=== PATIENT | male | born 1955 | race Two or more races ===

== ENCOUNTER 2024-05-08 03:46 | Emergency (ER) | payer MEDICARE, SELFPAY ==
[2024-05-08] VITALS (8 sets, daily range): BP systolic 131–168; BP diastolic 78–92; PULSE 90–98; RESP 16–19; TEMP 36.7; O2SAT 93–99; BMI 33.5
--- NOTE | 2024-05-08 03:58 | EDNOTE_ITS ---
ED General RME/HPI General Chief complaint: Shortness of Breath/Dyspnea Stated complaint: TROUBLE BREATHING Time Seen by Provider: 05/08/24 03:49 Arrival date/time: 05/08/24 03:46 RME / HPI RME / HPI narrative: This section includes all my notes and documentations, including HPI, PE, and ED course. Alexi Rdz MD HPI: 68yo male with pmhx CAD, CHF, HTN, asthma, DM accompanied by his presents to the ED for a chief complaint of shortness of breath. Patient states his shortness of breath is intermittent, but worsens at night when he lays flat. Patient's notes the patient's stomach has been slightly distended and has had BLE swelling. Patient denies any cough, fever, chills or any other associated symptoms. states the patient is currently waiting to see a cardiac surgeon for his CAD. No other complaints reported. ROS: Respiratory: negative except as documented in HPI. Gastrointestinal: negative except as documented in HPI. Genitourinary: negative except as documented in HPI. Musculoskeletal: negative except as documented in HPI. Skin: negative except as documented in HPI. Neurological: negative except as documented in HPI. Physical Exam: General: Alert and oriented. In moderate respiratory distress. Eyes: Conjunctivae and lids clear. ENT: No nasal congestion. Neck: Supple. No JVD. Heart: RRR. Lungs: Moderate respiratory distress. Moderately decreased air movement with wheezing and Rales. Abdomen: Soft and nontender. Normal bowel sounds. No distension. No rebound or guarding. Legs: No clubbing, cyanosis, edema. Skin: Warm and dry. Neuro: Alert and oriented X 3. I ordered treatments (including Solu-Medrol and DuoNeb and Lasix and morphine and topical NTG) and diagnostic tests. At 6 AM, the care of the patient was transferred to Dr. Caba. Alexi Rdz MD Related Data Home Medications ?Medication ?Instructions ?Recorded ?Confirmed amlodipine 10 mg tablet 10 mg PO QDAY 12/14/20 05/08/24 benazepril 40 mg tablet 40 mg PO BID 12/14/20 05/08/24 metformin 1,000 mg tablet 1,000 mg PO BID 12/14/20 05/08/24 prazosin 1 mg capsule 1 mg PO BID 12/14/20 05/08/24 sitagliptin phosphate 100 mg 100 mg PO QDAY 12/14/20 05/08/24 tablet (Januvia) clotrimazole-betamethasone 1 1 applic topical BID excema 01/29/21 05/08/24 %-0.05 % topical cream albuterol sulfate 90 mcg/actuation 2 puff inhalation Q6H PRN ASTHMA 01/29/24 05/08/24 aerosol inhaler glimepiride 4 mg tablet 4 mg PO BID 01/29/24 05/08/24 insulin aspart U-100 100 unit/mL 12 unit subcut TID 01/29/24 05/08/24 (3 mL) subcutaneous pen (Novolog FlexPen U-100 Insulin aspart) insulin glargine U-300 conc 300 100 unit subcut QDAY 01/29/24 05/08/24 unit/mL (1.5 mL) subcutaneous pen (Toujeo SoloStar U-300 Insulin) simvastatin 20 mg tablet 20 mg PO QPM 01/29/24 05/08/24 clotrimazole-betamethasone 1 1 applic topical 2XD excema 05/08/24 05/08/24 %-0.05 % topical cream hydrocortisone 2.5 % topical 1 applic topical 2XD excema 05/08/24 05/08/24 ointment Allergies Allergy/AdvReac Type Severity Reaction Status Date / Time No Known Allergies Allergy Verified 05/08/24 03:49 Review of Systems Review of Systems Systems Reviewed: All systems reviewed, normal except as documented Past Medical History Past Medical History CARDIAC: Positive Congestive Heart Failure and Hypertension; Negative Cardiac Disorders RESPIRATORY: Positive Asthma; Negative Chronic Obstructive Pulmonary Disease (COPD) GENITOURINARY: Negative Renal Disease MUSCULOSKELETAL: Negative Musculoskeletal Disorders ENDOCRINE: Positive Diabetes Mellitus Type 2; Negative Diabetes Mellitus Type 1 HEMATOLOGIC: Negative Blood Disorders Surgical History SURGICAL: Positive Vascular Surgery Social History SMOKING STATUS: Never smoker ED Exam Narrative Physical exam: As noted in HPI. Course Quality Measures none Orders Category Date Time Status Bedside COVID-19 Antigen Test NOW Care 05/08/24 04:00 Active Bedside Influenza A&B Antigen Test NOW Care 05/08/24 04:[address] Screening NOW Care 05/08/24 04:00 Active EKG (ED ONLY) *Do not use* NOW Care 05/08/24 04:00 Completed Saline [Insert IV] NOW Care 05/08/24 03:[address] abdomen pelvis w con Stat Exams 05/08/24 04:[address] angio chest Stat Exams 05/08/24 04:00 Ordered EKG (ED Only) Stat Exams 05/08/24 04:00 Draft BNP [B-Type Natriuretic Peptide] Stat Lab 05/08/24 04:10 Received CBC Stat Lab 05/08/24 04:10 Completed CMP [Comprehensive Metabolic Panel] Stat Lab 05/08/24 04:10 Received D-Dimer Stat Lab 05/08/24 04:10 Completed Magnesium Stat Lab 05/08/24 04:10 Received Troponin I Stat Lab 05/08/24 04:10 Received UA [Urinalysis] Stat Lab 05/08/24 04:48 Completed Albuterol/Ipratr Rt Arleen [Duoneb Rt Arleen] Med 05/08/24 04:01 Discontinued 3 ml INH X1 ONE Furosemide Inj [Lasix Inj] Med 05/08/24 03:58 Discontinued 40 mg IVP X1 ONE MethylPREDNISolone.* [SoluMEDROL Inj] Med 05/08/24 04:01 Discontinued 125 mg IVP X1 ONE Morphine Inj Med 05/08/24 03:58 Discontinued 2 mg IVP X1 ONE Nitroglycerin Oint 2% [Nitro-paste Oint 2%] Med 05/08/24 03:58 Discontinued 2 inch TOP X1 ONE Vital Signs Vital signs: Vital Signs Temperature 98.0 F 05/08/24 03:57 Pulse Rate 93 05/08/24 03:57 Respiratory Rate 18 05/08/24 03:57 Blood Pressure 168/87 H 05/08/24 03:57 Pulse Oximetry (%) 95 05/08/24 03:57 Oxygen Delivery Method Room Air 05/08/24 03:57 Pulse ox is 95% on room air, which is normal according to my interpretation. [facility] Patient data External records reviewed:: [facility] previous records (Per chart review, patient has no previous ED visits to this facility.) Clinical information provided by:: patient Social determinants that could affect healthcare access:: none Patient has the following chronic illnesses:: CAD, CHF, HTN, DM How is presenting disease/condition affected by chronic disease/condition?: e xacerbated by Evaluation data The following diagnostics were reviewed and interpreted by me:: lab results, radiology exam(s) and EKG tracing(s) (My interpretation of the EKG is: Sinus rhythm (94 bpm) with nonspecific ST-T changes. Alexi Rdz MD) Lab and/or radiology exams considered but not ordered:: none Interpretation Summary: See HPI. Medications Medications considered but not ordered:: none Medication administrations:: Medication Administration History Discontinued Medications Albuterol/Ipratropium (Albuterol/Ipratropium (Duoneb) Rt Arleen 3 Ml Nebu) 3 ml INH X1 ONE Stop: 05/08/24 04:02 Last Admin: 05/08/24 04:18 Dose: 3 ml Documented By: DU Furosemide (Furosemide Inj 10 Mg/Ml 4ml Vial) 40 mg IVP X1 ONE Stop: 05/08/24 03:59 Last Admin: 05/08/24 04:10 Dose: 40 mg Documented By: TC Methylprednisolone Sodium Succinate (Methylprednisolone Sod Succ 62.5 Mg/Ml 2ml Vial) 125 mg IVP X1 ONE Stop: 05/08/24 04:02 Last Admin: 05/08/24 04:10 Dose: 125 mg Documented By: TC Morphine Sulfate (Morphine Sulf Inj 10 Mg/Ml Vial) 2 mg IVP X1 ONE Stop: 05/08/24 03:59 Last Admin: 05/08/24 04:12 Dose: 2 mg Documented By: TC Nitroglycerin (Nitroglycerin Oint 2% 1 Inch Packet) 2 inch TOP X1 ONE Stop: 05/08/24 03:59 Last Admin: 05/08/24 04:11 Dose: 2 inch Documented By: TC see above, if any Consultations Consultation(s) initiated? (list below): No Diagnosis Differential Diagnosis ED Complaint MDM: CHF exacerbation, asthma exacerbation, pneumonia, PE, NSTEMI Most likely diagnosis given after review of the tests above:: final dx pending at the time of sign out Admission Indicated Admission indicated?: not indicated Explain why admission is indicated or not indicated:: Patient is still pending work-up at the time of sign out. Admission Request Was there a request for admission?: No Disposition Plan Disposition Plan: other (specify) (Signed out to Dr. Caba at 0600 pending CTs, labs, and final disposition.) Medical Decision Making Differential Diagnosis Differential Diagnosis: CHF exacerbation, asthma exacerbation, pneumonia, PE, NSTEMI Lab Data 05/08/24 04:10 05/08/24 04:10 Labs: Lab Results 05/08/24 05/08/24 Range/Units 04:10 04:48 WBC 12.5 H (3.8-10.6) Thou/mm3 RBC 4.38 L (4.50-5.90) Miln/mm3 Hgb 13.4 L (13.5-16.0) g/dL Hct 37.9 L (41.0-53.0) % MCV 87 (80-100) fL MCH 30.6 (25.0-35.0) pg MCHC 35.4 (31.0-37.0) g/dl RDW Std Deviation 39.8 (35.1-43.9) fL Plt Count 221 (140-440) Thou/mm3 Neut % (Auto) 70 (37-80) % Lymph % (Auto) 16 (10-50) % [place] % (Auto) 10 (0-12) % Eos % (Auto) 3 (0-10) % Baso % (Auto) 1 (0-2.5) % Neut # (Auto) 8.7 H (1.8-7.7) Thou/mm3 Lymph # (Auto) 2.0 (1.0-4.8) Thou/mm3 [place] # (Auto) 1.3 H (0.0-0.8) Thou/mm3 Eos # (Auto) 0.3 (0.0-0.5) Thou/mm3 Baso # (Auto) 0.1 (0.0-0.2) Thou/mm3 Immature Gran # (Auto) 0.03 H (0.00-0.00) Thou/mm3 Absolute Nucleated RBC 0.00 (0.00-0.00) Thou/mm3 Immature Gran % 0 (0-0) % Nucleated RBC % 0 (0) /100 WBC D-Dimer 495 (<600) ng/mL Ur Collection Type Clean Catch Urine Color Colorless A (Lt Yel-Yel) Urine Clarity Clear (Clear/Hazy) Urine pH 6.0 (5.0-7.0) Ur Specific [place] 1.009 (1.001-1.035) Urine Protein 1+ A (Neg - Trace) Urine Glucose (UA) Negative (Negative) Urine Ketones Negative (Negative) Urine Blood Negative (Negative) Urine Nitrite Negative (Negative) Urine Bilirubin Negative (Negative) Urine Urobilinogen (Auto) Negative (0.0-1.0) mg/dL Ur Leukocyte Esterase Negative (Negative) Urine RBC 1 (0-3) /hpf Urine WBC 0 (0-5) /hpf Ur Squamous Epith Cells 0 (0-5) /hpf Urine Bacteria None (None) Discharge Plan Prescriptions/Referrals Prescriptions/Med Rec: No Action amlodipine 10 mg tablet 10 mg PO QDAY Januvia 100 mg tablet 100 mg PO QDAY benazepril 40 mg tablet 40 mg PO BID metformin 1,000 mg tablet 1,000 mg PO BID Hold Instructions: Resume on 01/31/24. resume on Tuesday 01/30 prazosin 1 mg capsule 1 mg PO BID clotrimazole-betamethasone 1-0.05 % cream 1 applic topical BID simvastatin 20 mg Tablet 20 mg PO QPM insulin aspart U-100 [Novolog FlexPen U-100 Insulin] 100 unit/mL (3 mL) Insulin Pen 12 unit SUBCUT TID insulin glargine U-300 conc [Toujeo SoloStar U-300 Insulin] 300 unit/mL (1.5 mL) Insulin Pen 100 unit SUBCUT QDAY glimepiride 4 mg Tablet 4 mg PO BID albuterol sulfate 90 mcg/actuation Hfa Aerosol Inhaler 2 puff INHALATION Q6H PRN (Reason: ASTHMA) clotrimazole-betamethasone 1-0.05 % cream 1 applic topical 2XD hydrocortisone 2.5 % ointment 1 applic TOPICAL 2XD Problem List Clinical Impression: Shortness of breath Patient/Caregiver Discharge Instructions Print Language: [place]
--- NOTE | 2024-05-08 04:00 | XR_ITS ---
Examination: CT abdomen with intravenous contrast CT pelvis with intravenous contrast 2-D coronal reconstructions 2-D sagittal reconstructions Date and time of exam:May 08, 2024 0804 hrs. Indications: Generalized abdominal discomfort beginning last night with shortness of breath. CTDI: vol (mGy) 13.8 DLP: (mGycm) 796 Technique: Multiple axial sections of the abdomen and pelvis have been obtained. 64 slice high-resolution scanner used. 3 mm axial sections have been obtained, post intravenous injection 100 cc Isovue-370 2-D sagittal, coronal reconstructions obtained. Low dose protocols were performed. One or more of the following dose reduction techniques were used; automated exposure control, adjustment of the mA and/or KV according to patient size, use of iterative reconstruction technique. Findings: No liver lesions Negative for gallstones No splenic pancreatic mass 13 mm left adrenal adenoma Moderate bilateral renal parenchymal scar formation with perinephric stranding, no hydronephrosis or renal calculi 34 mm right renal cyst Aorta normal size Normal appendix No bowel obstruction or diverticulitis No bladder mass Transverse prostate dimension 3.9 cm Moderate osteopenia Impression: Moderate bilateral renal parenchymal scar formation with bilateral perinephric stranding, consider urinary tract infection
--- NOTE | 2024-05-08 04:00 | XR_ITS ---
Examination: CTA chest with intravenous contrast 2-D reconstructions 3-D reconstructions, vascular Date and time of exam: May 08, 2024 at 0804 hrs. Indications: Shortness breath chest pain beginning last night CTDI: vol (mGy) 25.2 DLP: (mGycm) 501 Technique: Multiple axial sections of the thorax have been obtained. 3 mm slice thickness, from below the hemidiaphragms to above the apices of the lungs. Mediastinal and lung density settings have been obtained. 2-D sagittal and coronal reconstructions. 3-D angiographic renderings, 3-D volume renderings, 3D post processing, vascular maximum intensity projections obtained. Contrast administered is 100 cc Isovue-370. Low dose protocols were performed. One or more of the following dose reduction techniques were used; automated exposure control, adjustment of the mA and/or KV according to patient size, use of iterative reconstruction technique. Findings: No thoracic aortic aneurysm dilatation or dissection Pulmonary artery segments are not enlarged No pulmonary artery emboli Mild enlargement cardiac contour Prominent vascular congestion with septal edema, moderate right mild left pleural fluid Mild pneumonia at the right base Moderate thoracic spondylosis Impression: Negative for pulmonary artery emboli Mild to moderate CHF Mild pneumonia right base
--- NOTE | 2024-05-08 04:00 | EKG_ITS ---
[facility] Test Date: 2024-05-08 Pat Name: JENELLE ALVARES Department: Room: - Gender: Male Speech Lang Path: : 1955 Requested By: Alexi Momin Order Number: [id number] Reading MD: lAexi Momin Measurements Intervals [place] Rate: 94 P: 28 DC: 202 QRS: 53 QRSD: 103 T: 62 QT: 355 QTc: 446 Interpretive Statements SINUS RHYTHM No previous ECG available for comparison /store/S0/[id number]/ecg/[id number].pdf
[2024-05-08] MEDS: FUROSEMIDE INJ 10 MG/ML 4ML VIAL 40 MG IVP (04:10)
[2024-05-08] MEDS: MethylPREDNISolone SOD SUCC 62.5 MG/ML 2ML VIAL 125 MG IVP (04:10)
[2024-05-08] MEDS: NITROGLYCERIN OINT 2% 1 INCH PACKET 2 INCH TOP (04:11)
[2024-05-08] MEDS: MORPHINE SULF INJ 10 MG/ML VIAL 2 MG IVP (04:12)
[2024-05-08] MEDS: ALBUTEROL/IPRATROPIUM (Duoneb) RT SOL 3 ML NEBU INH (04:18)
[2024-05-08 04:38] LABS: Basophils # (Auto) 0.1 Thou/mm3 (0.0-0.2); Basophils % (Auto) 1 % (0-2.5); Eosinophils # (Auto) 0.3 Thou/mm3 (0.0-0.5); Eosinophils % (Auto) 3 % (0-10); Hematocrit 37.9 % (41.0-53.0); Hemoglobin 13.4 g/dL (13.5-16.0); Immature Granulocytes % (Auto) 0 % (0-0); Immature Granulocytes Auto 0.03 Thou/mm3 (0.00-0.00); Lymphocytes % (Auto) 16 % (10-50); Mean Corpuscular HGB Conc 35.4 g/dl (31.0-37.0); Mean Corpuscular Hemoglobin 30.6 pg (25.0-35.0); Mean Corpuscular Volume 87 fL (80-100); Monocytes # (Auto) 1.3 Thou/mm3 (0.0-0.8); Monocytes % (Auto) 10 % (0-12); Neutrophils # (Auto) 8.7 Thou/mm3 (1.8-7.7); Neutrophils % (Auto) 70 % (37-80); Nucleated Red Blood Cell % 0 /100 WBC (0); Platelet Count 221 Thou/mm3 (140-440); RDW Standard Deviation 39.8 fL (35.1-43.9); Red Blood Count 4.38 Miln/mm3 (4.50-5.90); White Blood Count 12.5 Thou/mm3 (3.8-10.6)
[2024-05-08 05:03] LABS: D-Dimer 495 ng/mL (<600)
[2024-05-08 05:07] LABS: Collection Type, Urine Clean Catch; Squamous Epithelial Cell,Urine 0 /hpf (0-5); WBC,Urine 0 /hpf (0-5)
[2024-05-08 05:20] LABS: Bilirubin,Urine Negative (Negative); Blood,Urine Negative (Negative); Clarity,Urine Clear (Clear/Hazy); Color,Urine Colorless (Lt Yel-Yel); Glucose, Urine Negative (Negative); Ketones,Urine Negative (Negative); Leukocyte Esterase,Urine Negative (Negative); Nitrite,Urine Negative (Negative); Protein,Urine 1+ (Neg - Trace); RBC,Urine 1 /hpf (0-3); Specific Gravity,Urine 1.009 (1.001-1.035); Urobilinogen,Urine Negative mg/dL (0.0-1.0)
[2024-05-08 05:53] LABS: B-Type Natriuretic Peptide 517 pg/mL (0-100)
[2024-05-08 05:54] LABS: Alanine Aminotransferase 24 U/L (10-49); Albumin, Serum 4.5 gm/dL (3.4-4.8); Albumin/Globulin Ratio 1.7 (1.2-2.2); Alkaline Phosphatase 85 U/L (46-116); Anion Gap 8 (7-16); Aspartate Amino Transferase 26 U/L (0-34); BUN/Creatinine Ratio 12 Ratio (12-20); Blood Urea Nitrogen 14 mg/dL (9-23); Calcium 9.4 mg/dL (8.3-10.6); Calcium (Corrected) 9.4 mg/dL (8.5-10.1); Carbon Dioxide 21.7 mMol/L (20.0-31.0); Chloride 107 mMol/L (98-107); Creatinine (Component) 1.2 mg/dL (0.6-1.3); Globulin 2.7 gm/dL (2.3-3.5); Glucose 185 mg/dL (74-106); Magnesium 2.2 mg/dL (1.6-2.6); Osmolality,Calculated 279 (275-295); Potassium 3.9 mMol/L (3.4-5.1); Sodium 137 mMol/L (136-145); Total Protein 7.2 gm/dL (5.7-8.2); eGFR > 60 See Note
[2024-05-08 06:08] LABS: Bilirubin,Total 0.9 mg/dL (0.3-1.2)
--- NOTE | 2024-05-08 06:17 | PD.EDADDENDU ---
Emergency Room Addendum Addendum Narrative: Patient's CT angiogram is unremarkable. Patient has minimally elevated troponins, which is expected with his extensive coronary artery disease. Patient does not have any emergency medical conditions at this time but strict return precautions were discussed
--- NOTE | 2024-05-08 07:13 | PC.NURSE ---
Pt. here from home to bed 1, pt. laying in bed resting, very mild SOB, pt. states he had to come in because he could not even sleep or lay down at home. Pt. states to sleep he had to sit in his recliner. Pt.'s spouse is bedside and a retired RN, she states she will call pt.'s primary M.D. on Friday. Spouse states pt. is only on 20 mg of Lasix daily. Pt. states he feels much better now.
--- NOTE | 2024-05-08 08:16 | PC.NURSE ---
Pt. in CT.
--- NOTE | 2024-05-08 09:23 | PD.EDADDENDU ---
Emergency Room Addendum Addendum Narrative: Patient was presented to Dr. White, who agrees with discharge planning and will see the patient in his office in 2 days
== END 2024-05-08 09:40 | disposition home or self-care (01) ==
PROVIDERS: Emergency Medicine; Emergency Provider Emergency Medicine; PCP Family Medicine
DX: R06.02 Shortness of breath (principal); I25.10 Atherosclerotic heart disease of native coronary artery without angina pectoris; R79.89 Other specified abnormal findings of blood chemistry; I11.0 Hypertensive heart disease with heart failure; I50.9 Heart failure, unspecified
CPT/HCPCS: 36415; 71275; 74177; 80053; 81001; 83735; 83880; 84484; 85025; 85379; 87400; 87811; 93005; 94640; 96374; 96375; 99285; A4649; A9270; J1940; J2270; J2919; Q9967

== ENCOUNTER → 2024-05-17 | Outpatient (CLI) | payer MEDICARE, SELFPAY ==
[2024-05-17 16:56] LABS: Glucose Estimated Average 192 mg/dL (80-131); Hemoglobin A1C 8.3 % Hgb (4.8-6.0)
== END | disposition home or self-care (01) ==
PROVIDERS: PCP Family Medicine; Referring Provider Family Medicine; Visit Provider Family Medicine
DX: E11.65 Type 2 diabetes mellitus with hyperglycemia (principal)
CPT/HCPCS: 36415; 83036

== ENCOUNTER 2024-05-18 07:49 | Emergency (ER) | payer MEDICARE, SELFPAY ==
[2024-05-18 07:50] VITALS: BMI 33.5
--- NOTE | 2024-05-18 07:50 | EKG_ITS ---
[facility] Test Date: 2024-05-18 Pat Name: JENELLE ALVARES Department: Room: - Gender: Male Lead Generation Representative: : 1955 Requested By: Landon Ivory (COMPUTER OPERATIONS ANALYST) Order Number: [id number] Reading MD: Landon Ivory (COMPUTER OPERATIONS ANALYST) Measurements Intervals [place] Rate: 93 P: 12 DC: 202 QRS: 27 QRSD: 94 T: 30 QT: 354 QTc: 442 Interpretive Statements SINUS RHYTHM ANTEROSEPTAL MYOCARDIAL INFARCTION , OF INDETERMINATE AGE [40+ ms Q WAVE IN V1-V4] Compared to ECG 05/08/2024 04:25:48 Myocardial infarct finding now present /store/S0/[id number]/ecg/[id number].pdf
[2024-05-18 08:01] VITALS: BP 142/85; PULSE 98; RESP 18; TEMP 36.7; O2SAT 95
--- NOTE | 2024-05-18 08:09 | XR_ITS ---
Examination: PA lateral chest 2 views TECHNIQUE: Upright PA lateral chest 2 views Exam date and time: May 18, 2024 0853 hours INDICATIONS: Chest pain shortness of breath today. FINDINGS: Early bibasilar pneumonia Normal heart size Reduced inspiratory effort IMPRESSION: Early bibasilar pneumonia
--- NOTE | 2024-05-18 08:09 | PD.EDRME ---
Rapid Medical Screening Exam RME Arrival date/time: 05/18/24 07:49 68-year-old male presents emergency department complaint of shortness of breath Chief Complaint: Shortness of Breath/Dyspnea Time Seen by Provider: 05/18/24 07:50 Vital signs: Vital Signs Temperature 98.0 F 05/18/24 08:01 Pulse Rate 98 05/18/24 08:01 Respiratory Rate 18 05/18/24 08:01 Blood Pressure 142/85 H 05/18/24 08:01 Pulse Oximetry (%) 95 05/18/24 08:01 Oxygen Delivery Method Room Air 05/18/24 08:01
[2024-05-18 09:02] LABS: Basophils # (Auto) 0.1 Thou/mm3 (0.0-0.2); Basophils % (Auto) 1 % (0-2.5); Eosinophils # (Auto) 0.3 Thou/mm3 (0.0-0.5); Eosinophils % (Auto) 2 % (0-10); Hematocrit 39.3 % (41.0-53.0); Hemoglobin 13.5 g/dL (13.5-16.0); Immature Granulocytes % (Auto) 1 % (0-0); Immature Granulocytes Auto 0.06 Thou/mm3 (0.00-0.00); Lymphocytes # (Auto) 1.7 Thou/mm3 (1.0-4.8); Lymphocytes % (Auto) 15 % (10-50); Mean Corpuscular HGB Conc 34.4 g/dl (31.0-37.0); Mean Corpuscular Hemoglobin 30.5 pg (25.0-35.0); Mean Corpuscular Volume 89 fL (80-100); Monocytes % (Auto) 9 % (0-12); Neutrophils # (Auto) 8.3 Thou/mm3 (1.8-7.7); Neutrophils % (Auto) 72 % (37-80); Nucleated Red Blood Cell % 0 /100 WBC (0); Platelet Count 205 Thou/mm3 (140-440); Red Blood Count 4.42 Miln/mm3 (4.50-5.90); White Blood Count 11.4 Thou/mm3 (3.8-10.6)
[2024-05-18 09:31] LABS: Alanine Aminotransferase 25 U/L (10-49); Albumin, Serum 4.6 gm/dL (3.4-4.8); Albumin/Globulin Ratio 1.8 (1.2-2.2); Alkaline Phosphatase 83 U/L (46-116); Anion Gap 7 (7-16); Aspartate Amino Transferase 14 U/L (0-34); B-Type Natriuretic Peptide 524 pg/mL (0-100); BUN/Creatinine Ratio 10 Ratio (12-20); Blood Urea Nitrogen 11 mg/dL (9-23); Calcium 9.5 mg/dL (8.3-10.6); Calcium (Corrected) 9.5 mg/dL (8.5-10.1); Carbon Dioxide 24.7 mMol/L (20.0-31.0); Chloride 103 mMol/L (98-107); Creatinine (Component) 1.1 mg/dL (0.6-1.3); Estimated Creatinine Clearance 81.8 mL/min (>60); Globulin 2.6 gm/dL (2.3-3.5); Glucose 245 mg/dL (74-106); Osmolality,Calculated 277 (275-295); Potassium 4.4 mMol/L (3.4-5.1); Sodium 135 mMol/L (136-145); Total Protein 7.2 gm/dL (5.7-8.2); eGFR > 60 See Note
[2024-05-18 09:33] LABS: Troponin I 0.072 ng/mL (0.0-0.045)
[2024-05-18 10:00] VITALS: BP 139/83; PULSE 85; RESP 18; TEMP 36.6; O2SAT 98
[2024-05-18 11:15] VITALS: PULSE 90
--- NOTE | 2024-05-18 11:15 | PC.NURSE ---
in to assess pt. pt with c/o difficulty breathing and cough x2 days. pt without further complaints at this time. orders received and initiated. call light placed within reach. at bedside, plan of care ongoing.
[2024-05-18 11:22] VITALS: BP 164/91; PULSE 89; RESP 17; TEMP 36.7; O2SAT 97
--- NOTE | 2024-05-18 11:43 | EDNOTE_ITS ---
ED General RME/HPI General Chief complaint: Shortness of Breath/Dyspnea Stated complaint: HARD TIME BREATHING Time Seen by Provider: 05/18/24 07:50 Arrival date/time: 05/18/24 07:49 CC: Shortness of breath HPI ongoing for the past week. The patient has significant cardiac history is also on 40 mg of Lasix each morning, patient denies chest pain. Patient states the last 2 nights he had to sleep upright in the bed. Patient denies any swelling in his ankles. Patient states he has a very mild dry intermittent cough, denies any fever over the past week. states they have an appointment with Dr. Morgan cardio thoracic surgeon for consideration for open heart surgery . Currently the patient is nontoxic-appearing and not in any acute distress. Review of the medical record show the patient was here 1 week ago for same complaint, RME / HPI RME / HPI narrative: 05/18/24 07:49 68-year-old male presents emergency department complaint of shortness of breath Related Data Home Medications ?Medication ?Instructions ?Recorded ?Confirmed amlodipine 10 mg tablet 10 mg PO QDAY 12/14/20 05/08/24 benazepril 40 mg tablet 40 mg PO BID 12/14/20 05/08/24 metformin 1,000 mg tablet 1,000 mg PO BID 12/14/20 05/08/24 prazosin 1 mg capsule 1 mg PO BID 12/14/20 05/08/24 sitagliptin phosphate 100 mg 100 mg PO QDAY 12/14/20 05/08/24 tablet (Januvia) clotrimazole-betamethasone 1 1 applic topical BID excema 01/29/21 05/08/24 %-0.05 % topical cream albuterol sulfate 90 mcg/actuation 2 puff inhalation Q6H PRN ASTHMA 01/29/24 05/08/24 aerosol inhaler glimepiride 4 mg tablet 4 mg PO BID 01/29/24 05/08/24 insulin aspart U-100 100 unit/mL 12 unit subcut TID 01/29/24 05/08/24 (3 mL) subcutaneous pen (Novolog FlexPen U-100 Insulin aspart) insulin glargine U-300 conc 300 100 unit subcut QDAY 01/29/24 05/08/24 unit/mL (1.5 mL) subcutaneous pen (Toujeo SoloStar U-300 Insulin) simvastatin 20 mg tablet 20 mg PO QPM 01/29/24 05/08/24 clotrimazole-betamethasone 1 1 applic topical 2XD excema 05/08/24 05/08/24 %-0.05 % topical cream hydrocortisone 2.5 % topical 1 applic topical 2XD excema 05/08/24 05/08/24 ointment Previous Rx's ?Medication ?Instructions ?Recorded furosemide 80 mg tablet (Lasix) 80 mg PO QAM #1 tab 05/18/24 potassium chloride 20 mEq/15 mL 20 meq (15 mL) PO QDAY #30 mL 05/18/24 oral liquid Allergies Allergy/AdvReac Type Severity Reaction Status Date / Time No Known Allergies Allergy Verified 05/18/24 07:51 Review of Systems Review of Systems Narrative Review of Systems: GEN: No fever, no chills, no weight loss EYES: No discharge, no visual changes, no pain HEENT: No ear pain, no congestion, no sore throat PULM: + shortness of breath, no cough, no congestion CV: No chest pain, no dyspnea on exertion, no palpitations GI: No nausea, no vomiting, no diarrhea, no pain, no constipation : No frequency, no urgency, no dysuria MUSC/SKEL: No joint pain, no back pain SKIN: No rash PSYCH: No hallucinations, no depression HEME/LYMPH: No easy bleeding or bruising tendencies NEURO: No weakness, no headache Past Medical History Past Medical History CARDIAC: Positive Cardiac Disorders (CHF), Myocardial Infarction (october 2023), Hypercholesterolemia, Congestive Heart Failure and Hypertension RESPIRATORY: Positive Asthma (Hx of asthma and here for SOB); Negative Chronic Obstructive Pulmonary Disease (COPD) GASTROINTESTINAL: Negative Gastrointestinal Disorders GENITOURINARY: Positive Kidney Stones (HX of kidney stones at the age of 20); Negative Renal Disease MUSCULOSKELETAL: Positive Fractures (Left ankle); Negative Musculoskeletal Disorders ENDOCRINE: Positive Endocrine Disorders and Diabetes Mellitus Type 2; Negative Diabetes Mellitus Type 1 HEMATOLOGIC: Negative Blood Disorders or Sickle Cell Disease OTHER HISTORY: Negative Autoimmune Disease Family History FAMILY HISTORY: Positive Family Cardiac Disorders (father chf); Negative Family Psychiatric Problems (bipolar), Family Respiratory Disorders, Family Gastrointestinal Problems, Family Cancer, Family Surgery or Family Anesthesia Reaction Surgical History SURGICAL: Positive Vascular Surgery and Cardiac Catheterization Social History SMOKING STATUS: Never smoker ED Exam Narrative Physical exam: [General: Obese not in any acute distress Head normocephalic HEENT: Eyes pupils are PERRLA EOMs are intact. All other subsystems of HEENT are within acceptable limits Neck is supple nontender no JVD no edema Chest equal chest rise nontender to palpation Respiratory: Clear to auscultation no wheezes crackles or rubs, diminished in the bases CV: Rate rhythm is regular no murmurs rubs or clicks Abdomen is distended secondary to body habitus soft nontender no masses positive bowel sounds all 4 quadrants Back: No CVA tenderness no spinous process tenderness from cervical spine thoracic and lumbar spine Skin: Intact no petechiae rash induration ulceration or crepitus Extremities: Moving all extremity against resistance cap refill less than 2 seconds neurosensory intact. No lower extremity edema Neuro: Awake alert oriented x3 Glascow coma 15 no focal deficits] Course Course Course Narrative: Over the last 2 hours, the patient has diuresed approximately 1 L of fluid. The patient states his shortness of breath is resolved. His D-dimer is negative. On lengthy discussion with him and his it is patient admits that he is not additionally thirsty secondary to his diabetes medicine. states that they have a follow-up appointment with her PCP on Friday advised them to measure how much water he drinks each day as he may be fluid overloading himself just by volume. Laboratory results show no acute findings patient will be discharged home with potassium supplement and an additional day of 80 mg of Lasix. Quality Measures none Orders Category Date Time Status Corn Crop Supervisor NOW Care 05/18/24 08:09 Completed EKG (ED ONLY) *Do not use* NOW Care 05/18/24 07:50 Completed Saline [Insert IV] NOW Care 05/18/24 11:37 Completed EKG (ED Only) Stat Exams 05/18/24 07:50 Draft XR chest 2V Stat Exams 05/18/24 08:09 Completed BNP [B-Type Natriuretic Peptide] Stat Lab 05/18/24 08:29 Completed CBC Stat Lab 05/18/24 08:29 Completed Comprehensive Metabolic Panel Stat Lab 05/18/24 08:29 Completed D-Dimer Stat Lab 05/18/24 11:55 Completed Troponin I Stat Lab 05/18/24 08:29 Completed Urinalysis Stat Lab 05/18/24 11:57 Completed Furosemide Inj [Lasix Inj] Med 05/18/24 11:37 Discontinued 80 mg IVP X1 ONE Vital Signs Vital signs: Vital Signs Temperature 98.0 F 05/18/24 08:01 Pulse Rate 98 05/18/24 08:01 Respiratory Rate 18 05/18/24 08:01 Blood Pressure 142/85 H 05/18/24 08:01 Pulse Oximetry (%) 95 05/18/24 08:01 Oxygen Delivery Method Room Air 05/18/24 08:01 [facility] Patient data External records reviewed:: [facility] previous records Clinical information provided by:: patient and spouse Social determinants that could affect healthcare access:: none Patient has the following chronic illnesses:: Diabetes hypertension congestive heart failure How is presenting disease/condition affected by chronic disease/condition?: e xacerbated by Evaluation data The following diagnostics were reviewed and interpreted by me:: lab results, radiology exam(s) and EKG tracing(s) Lab and/or radiology exams considered but not ordered:: EKG performed at 0 810 shows a ventricular rate of 93 AK interval 202 QRS of 94 QTc of 405 this sinus rhythm. No significant changes when compared to an old EKG of May 08, 2024. CBC shows a mild leukocytosis, no anemia thrombocytopenia CMP shows elevated glucose level of 245 no other significant electrolyte imbalances renal impairment transaminitis or T. bili elevation Troponin is elevated at 0.072, decreased from an troponin from 1 week ago, BNP elevated at 524, mildly elevated from a BNP 1 week ago Interpretation Summary: At this time this patient has a persistent signs of shortness of breath, with no chest pain EKG shows no acute findings, troponin is relatively unchanged over 1 week as is the BNP, I will check this patient for PE and also administer 80 mg of Lasix to see if diuresis improves his respiratory status. Medications Medications considered but not ordered:: None Medication administrations:: Medication Administration History Discontinued Medications Furosemide (Furosemide Inj 10 Mg/Ml 4ml Vial) 80 mg IVP X1 ONE Stop: 05/18/24 11:38 Last Admin: 05/18/24 11:49 Dose: 80 mg Documented By: ROSE None Consultations Consultation(s) initiated? (list below): No Diagnosis Differential Diagnosis ED Complaint MDM: ACS MO pneumonia congestive heart failure Most likely diagnosis given after review of the tests above:: Fluid overload Admission Indicated Admission indicated?: not indicated Explain why admission is indicated or not indicated:: Stable for outpatient follow-up Admission Request Was there a request for admission?: No Disposition Plan Disposition Plan: Discharge Discharge Attestation Discharge Attestation: The patient and all family members were given an opportunity to ask questions and understood the discharge instructions. Discharge instructions specifically effects, indications for sooner follow up or return to the emergency department, and the expected course of current diagnosis. Patient condition: Stable Medical Decision Making Differential Diagnosis Differential Diagnosis: ACS MO pneumonia congestive heart failure Lab Data 05/18/24 08:29 05/18/24 08:29 Labs: Lab Results 05/18/24 05/18/24 05/18/24 Range/Units 08:29 11:55 11:57 WBC 11.4 H (3.8-10.6) Thou/mm3 RBC 4.42 L (4.50-5.90) Miln/mm3 Hgb 13.5 (13.5-16.0) g/dL Hct 39.3 L (41.0-53.0) % MCV 89 (80-100) fL MCH 30.5 (25.0-35.0) pg MCHC 34.4 (31.0-37.0) g/dl RDW Std Deviation 42.0 (35.1-43.9) fL Plt Count 205 (140-440) Thou/mm3 Neut % (Auto) 72 (37-80) % Lymph % (Auto) 15 (10-50) % [place] % (Auto) 9 (0-12) % Eos % (Auto) 2 (0-10) % Baso % (Auto) 1 (0-2.5) % Neut # (Auto) 8.3 H (1.8-7.7) Thou/mm3 Lymph # (Auto) 1.7 (1.0-4.8) Thou/mm3 Towner # (Auto) 1.0 H (0.0-0.8) Thou/mm3 Eos # (Auto) 0.3 (0.0-0.5) Thou/mm3 Baso # (Auto) 0.1 (0.0-0.2) Thou/mm3 Immature Gran # (Auto) 0.06 H (0.00-0.00) Thou/mm3 Absolute Nucleated RBC 0.00 (0.00-0.00) Thou/mm3 Immature Gran % 1 H (0-0) % Nucleated RBC % 0 (0) /100 WBC D-Dimer 386 (<600) ng/mL Sodium 135 L (136-145) mMol/L Potassium 4.4 (3.4-5.1) mMol/L Chloride 103 (98-107) mMol/L Carbon Dioxide 24.7 (20.0-31.0) mMol/L Anion Gap 7 (7-16) BUN 11 (9-23) mg/dL Creatinine 1.1 (0.6-1.3) mg/dL Estim Creat Clear Calc 81.8 (>60) mL/min eGFR > 60 (60 - ) See Note BUN/Creatinine Ratio 10 L (12-20) Ratio Glucose 245 H (74-106) mg/dL Calculated Osmolality 277 (275-295) Calcium 9.5 (8.3-10.6) mg/dL Corrected Calcium 9.5 (8.5-10.1) mg/dL Total Bilirubin 1.0 (0.3-1.2) mg/dL AST 14 (0-34) U/L ALT 25 (10-49) U/L Alkaline Phosphatase 83 (46-116) U/L Troponin I 0.072 H* (0.0-0.045) ng/mL B-Natriuretic Peptide 524 H* (0-100) pg/mL Total Protein 7.2 (5.7-8.2) gm/dL Albumin 4.6 (3.4-4.8) gm/dL Globulin 2.6 (2.3-3.5) gm/dL Albumin/Globulin Ratio 1.8 (1.2-2.2) Ur Collection Type Clean Catch Urine Color Yellow (Lt Yel-Yel) Urine Clarity Hazy (Clear/Hazy) Urine pH 6.0 (5.0-7.0) Ur Specific [place] 1.014 (1.001-1.035) Urine Protein 1+ A (Neg - Trace) Urine Glucose (UA) Negative (Negative) Urine Ketones 2+ A (Negative) Urine Blood Negative (Negative) Urine Nitrite Negative (Negative) Urine Bilirubin Negative (Negative) Urine Urobilinogen (Auto) Negative (0.0-1.0) mg/dL Ur Leukocyte Esterase Positive (Negative) Urine RBC 2 (0-3) /hpf Urine WBC 17 H (0-5) /hpf Ur Squamous Epith Cells 9 H (0-5) /hpf Urine Bacteria Rare (None) Hyaline Casts < 1 (0-1) /hpf Discharge Plan Plan Patient Disposition: HOME (Self Care) Patient condition on transfer: Stable Prescriptions/Referrals Prescriptions/Med Rec: New furosemide [Lasix] 80 mg tablet 80 mg PO QAM Qty: 1 0RF potassium chloride 20 mEq/15 mL liquid 20 meq PO QDAY Qty: 30 0RF No Action amlodipine 10 mg tablet 10 mg PO QDAY Januvia 100 mg tablet 100 mg PO QDAY benazepril 40 mg tablet 40 mg PO BID metformin 1,000 mg tablet 1,000 mg PO BID Hold Instructions: Resume on 01/31/24. resume on Tuesday 01/30 prazosin 1 mg capsule 1 mg PO BID clotrimazole-betamethasone 1-0.05 % cream 1 applic topical BID simvastatin 20 mg Tablet 20 mg PO QPM insulin aspart U-100 [Novolog FlexPen U-100 Insulin] 100 unit/mL (3 mL) Insulin Pen 12 unit SUBCUT TID insulin glargine U-300 conc [Toujeo SoloStar U-300 Insulin] 300 unit/mL (1.5 mL) Insulin Pen 100 unit SUBCUT QDAY glimepiride 4 mg Tablet 4 mg PO BID albuterol sulfate 90 mcg/actuation Hfa Aerosol Inhaler 2 puff INHALATION Q6H PRN (Reason: ASTHMA) clotrimazole-betamethasone 1-0.05 % cream 1 applic topical 2XD hydrocortisone 2.5 % ointment 1 applic TOPICAL 2XD Referrals: Shon Paige MD [Primary Care Provider] - In 1 week Problem List Clinical Impression: Fluid overload Patient/Caregiver Discharge Instructions Diet Instructions: Major the amount of water that you drink each day until your follow-up appointment on Friday, May 24, 2024, report this to your primary care doctor if there is a reoccurrence of shortness of breath return the emergency room for reevaluation. Take the medications as prescribed. Print Language: Malaysian Stand Alone Forms: Hannah Award Info., Work/School Release, Patient Portal Info Letter DANIELLA/NAOMI Supervising Physician DANIELLA/NAOMI Supervising Physician: Manuel Sierra ENP
[2024-05-18 11:49] VITALS: BP 153/97; PULSE 90
[2024-05-18] MEDS: FUROSEMIDE INJ 10 MG/ML 4ML VIAL 80 MG IVP (11:49)
[2024-05-18 12:07] LABS: Collection Type, Urine Clean Catch
[2024-05-18 12:14] LABS: Bacteria,Urine Rare; Bilirubin,Urine Negative (Negative); Blood,Urine Negative (Negative); Color,Urine Yellow (Lt Yel-Yel); Glucose, Urine Negative (Negative); Hyaline Casts,Urine < 1 /hpf (0-1); Ketones,Urine 2+ (Negative); Leukocyte Esterase,Urine Positive (Negative); Nitrite,Urine Negative (Negative); Protein,Urine 1+ (Neg - Trace); RBC,Urine 2 /hpf (0-3); Specific Gravity,Urine 1.014 (1.001-1.035); Squamous Epithelial Cell,Urine 9 /hpf (0-5); Urobilinogen,Urine Negative mg/dL (0.0-1.0); WBC,Urine 17 /hpf (0-5)
[2024-05-18 12:30] LABS: Clarity,Urine Hazy (Clear/Hazy)
[2024-05-18 12:37] LABS: D-Dimer 386 ng/mL (<600)
--- NOTE | 2024-05-18 13:37 | PC.NURSE ---
Walked patient around nurses station, patient denied sob, no c/o dizziness, 02 sats 96% on RA, Manuel SCRATCHER TENDER made aware.
[2024-05-18 13:38] VITALS: BP 150/86; PULSE 93; RESP 18; O2SAT 96
== END 2024-05-18 14:22 | disposition home or self-care (01) ==
PROVIDERS: Nurse Practitioner Primary Care; Registered Nurse General Practice; Emergency Provider Emergency Medicine; PCP Family Medicine
DX: I11.0 Hypertensive heart disease with heart failure (principal); I50.9 Heart failure, unspecified; E11.9 Type 2 diabetes mellitus without complications
CPT/HCPCS: 36415; 71046; 80053; 81001; 83880; 84484; 85025; 85379; 93005; 96374; 99284; J1940

== ENCOUNTER 2024-06-11 07:58 | Emergency (ER) | payer MEDICARE, SELFPAY ==
[2024-06-11] VITALS (7 sets, daily range): BP systolic 117–147; BP diastolic 64–81; PULSE 48–97; RESP 12–99; TEMP 36.4–36.8; O2SAT 95–97; BMI 34.8
--- NOTE | 2024-06-11 08:18 | XR_ITS ---
Examination: AP chest single view Technique one AP portable semiupright chest single view Exam date and time: June 11, 2024 0845 hours INDICATIONS: Chest pain shortness of breath today. FINDINGS: Mild opacity both bases Normal heart size No pulmonary edema IMPRESSION: Suspicious for early bibasilar pneumonia
--- NOTE | 2024-06-11 08:18 | EKG_ITS ---
[facility] Test Date: 2024-06-11 Pat Name: JENELLE ALVARES Department: Room: - Gender: Male Warp Picker: : [phone] Requested By: Tierney Vyas ([facility]) Mickey Order Number: [id number] Reading MD: Tierney Vyas ([facility]) Mickey Measurements Intervals Mcdermitt Rate: 101 P: 34 RI: 163 QRS: 32 QRSD: 112 T: 28 QT: 355 QTc: 461 Interpretive Statements SINUS TACHYCARDIA WITH FREQUENT VENTRICULAR PREMATURE COMPLEXES LOW QRS VOLTAGE IN PRECORDIAL LEADS [QRS DEFLECTION < 1.0 mV IN CHEST LEADS] ANTEROSEPTAL MYOCARDIAL INFARCTION , OF INDETERMINATE AGE [40+ ms Q WAVE IN V1-V4] Compared to ECG 05/18/2024 08:10:02 Ventricular premature complex(es) now present Low QRS voltage now present Sinus rhythm no longer present Myocardial infarct finding still present /store/S0/[id number]/ecg/[id number].pdf
--- NOTE | 2024-06-11 08:18 | PD.EDRME ---
Rapid Medical Screening Exam [facility] Arrival date/time: 06/11/24 07:58 68-year-old male presents to the emergency department with complaints of shortness of breath and chest pain Scheduled for open heart surgery in 2 weeks at [facility]. I have greeted and performed a focused initial assessment of this patient. Initial appropriate labs ordered at this time. A comprehensive ED assessment and evaluation of the patient and analysis of all test and completion of medical decision making process will be conducted by additional ED provider. Chief Complaint: Shortness of Breath/Dyspnea Time Seen by Provider: 06/11/24 08:03 Vital signs: Vital Signs Temperature 98.3 F 06/11/24 08:15 Pulse Rate 48 L 06/11/24 08:15 Respiratory Rate 20 06/11/24 08:15 Blood Pressure 126/70 06/11/24 08:15 Pulse Oximetry (%) 97 06/11/24 08:15 Oxygen Delivery Method Room Air 06/11/24 08:15
--- NOTE | 2024-06-11 08:44 | PC.NURSE ---
X RAY AT BEDSIDE
[2024-06-11 08:46] LABS: Basophils # (Auto) 0.1 Thou/mm3 (0.0-0.2); Basophils % (Auto) 1 % (0-2.5); Eosinophils # (Auto) 0.2 Thou/mm3 (0.0-0.5); Eosinophils % (Auto) 2 % (0-10); Hematocrit 39.3 % (41.0-53.0); Hemoglobin 13.3 g/dL (13.5-16.0); Immature Granulocytes % (Auto) 1 % (0-0); Immature Granulocytes Auto 0.05 Thou/mm3 (0.00-0.00); Lymphocytes # (Auto) 1.8 Thou/mm3 (1.0-4.8); Lymphocytes % (Auto) 19 % (10-50); Mean Corpuscular HGB Conc 33.8 g/dl (31.0-37.0); Mean Corpuscular Hemoglobin 30.2 pg (25.0-35.0); Mean Corpuscular Volume 89 fL (80-100); Monocytes # (Auto) 0.8 Thou/mm3 (0.0-0.8); Monocytes % (Auto) 9 % (0-12); Neutrophils # (Auto) 6.8 Thou/mm3 (1.8-7.7); Neutrophils % (Auto) 70 % (37-80); Nucleated Red Blood Cell % 0 /100 WBC (0); Platelet Count 187 Thou/mm3 (140-440); RDW Standard Deviation 42.7 fL (35.1-43.9); White Blood Count 9.7 Thou/mm3 (3.8-10.6)
[2024-06-11 09:05] LABS: Alanine Aminotransferase 19 U/L (10-49); Albumin, Serum 4.5 gm/dL (3.4-4.8); Albumin/Globulin Ratio 1.8 (1.2-2.2); Alkaline Phosphatase 80 U/L (46-116); Anion Gap 10 (7-16); Aspartate Amino Transferase 31 U/L (0-34); BUN/Creatinine Ratio 13 Ratio (12-20); Bilirubin,Total 0.7 mg/dL (0.3-1.2); Blood Urea Nitrogen 17 mg/dL (9-23); Calcium 9.2 mg/dL (8.3-10.6); Calcium (Corrected) 9.2 mg/dL (8.5-10.1); Carbon Dioxide 23.4 mMol/L (20.0-31.0); Chloride 105 mMol/L (98-107); Creatinine (Component) 1.3 mg/dL (0.6-1.3); Estimated Creatinine Clearance 70.6 mL/min (>60); Globulin 2.5 gm/dL (2.3-3.5); Glucose 191 mg/dL (74-106); Lipase 33 U/L (12-53); Magnesium 1.9 mg/dL (1.6-2.6); Osmolality,Calculated 282 (275-295); Sodium 138 mMol/L (136-145); eGFR > 60 See Note
[2024-06-11 09:18] LABS: Partial Thromboplastin Time 28.2 Seconds (22.0-36.0); Prothrombin Time 11.1 Seconds (9.0-12.2); Troponin I 0.143 ng/mL (0.0-0.045)
[2024-06-11 09:29] LABS: B-Type Natriuretic Peptide 572 pg/mL (0-100)
--- NOTE | 2024-06-11 09:44 | XR_ITS ---
Examination: CTA chest with intravenous contrast 2-D reconstructions 3-D reconstructions, vascular Date and time of exam: June 11, 2024 1249 hours INDICATIONS: Shortness of breath chest pain today CTDI: vol (mGy) 17 DLP: (mGycm) 627 Technique: Multiple axial sections of the thorax have been obtained. 3 mm slice thickness, from below the hemidiaphragms to above the apices of the lungs. Mediastinal and lung density settings have been obtained. 2-D sagittal and coronal reconstructions. 3-D angiographic renderings, 3-D volume renderings, 3D post processing, vascular maximum intensity projections obtained. Contrast administered is 100 cc Isovue-370. Low dose protocols were performed. One or more of the following dose reduction techniques were used; automated exposure control, adjustment of the mA and/or KV according to patient size, use of iterative reconstruction technique. Findings: No thoracic aortic aneurysm dilatation Pulmonary artery segments are not enlarged No pulmonary artery emboli Mild enlargement cardiac contour Mild vascular congestion Bibasilar opacity consistent with pneumonia, mild right minimal left pleural fluid No visualized liver or splenic lesion No pancreatic mass IMPRESSION: Negative for pulmonary artery emboli Mild vascular congestion Bibasilar pneumonia with mild right minimal left pleural fluid
--- NOTE | 2024-06-11 09:44 | XR_ITS ---
Examination: CT abdomen with intravenous contrast CT pelvis with intravenous contrast 2-D coronal reconstructions 2-D sagittal reconstructions Date and time of exam:June 11, 2024 1249 hours INDICATIONS: Onset diffuse abdominal pain and distention today COMPARISON: May 08, 2024. CTDI: vol (mGy) 13.2 DLP: (mGycm) 903 Technique: Multiple axial sections of the abdomen and pelvis have been obtained. 64 slice high-resolution scanner used. 3 mm axial sections have been obtained, post intravenous injection 100 cc Isovue-370 2-D sagittal, coronal reconstructions obtained. Low dose protocols were performed. One or more of the following dose reduction techniques were used; automated exposure control, adjustment of the mA and/or KV according to patient size, use of iterative reconstruction technique. Findings: Diffuse fatty infiltration throughout the liver, no biliary tract dilatation Fluid adjacent to the gallbladder, axial image 89 No pancreatic mass 10 mm left adrenal adenoma Aorta normal size Bilateral renal cysts, no hydronephrosis No bowel obstruction No pericecal inflammatory change, normal appendix No diverticulitis No significant prostatomegaly No bladder mass Moderate lumbar spondylosis IMPRESSION: Recommend hepatobiliary sonography to exclude acute cholecystitis No hydronephrosis renal or ureteral calculi No CT findings of bowel obstruction or diverticulitis Normal appendix
--- NOTE | 2024-06-11 09:54 | EDNOTE_ITS ---
ED SOB =RME/HPI General Chief Complaint: Shortness of Breath/Dyspnea Stated Complaint: SOB Time Seen by Provider: 06/11/24 08:03 Arrival date/time: 06/11/24 07:58 Limitations: no limitations RME / HPI RME / HPI Narrative: 06/11/24 07:58 68-year-old male presents to the emergency department with complaints of shortness of breath and chest pain Scheduled for open heart surgery in 2 weeks at [facility]. I have greeted and performed a focused initial assessment of this patient. Initial appropriate labs ordered at this time. A comprehensive ED assessment and evaluation of the patient and analysis of all test and completion of medical decision making process will be conducted by additional ED provider. DR. WALLIS MAIN ED EVALUATION: 68 year-old presents to the emergency department with worsening difficulty breathing. He denies chest pain. He states the breathing is from a sense of ?holding in fluid? and fullness to his abdomen. He has an adjustable bed and sleeps with one pillow without change in that incline last night. He denies recent fevers, chills, sweats, no cough or sick contact. He does note very mild nausea without vomiting, but excessive foul smelling belching. He?s had normal bowel movements without diarrhea. He denies abdominal pain, just a sense of swelling in his abdomen. PMHx: Ischemic cardiomyopathy followed by Dr. White with multivessel dis ease, requiring CABG. His CABG, is scheduled for June [address] Rivera at [facility]. Related Data Home Medications ?Medication ?Instructions ?Recorded ?Confirmed amlodipine 10 mg tablet 10 mg PO QDAY 12/14/20 05/08/24 benazepril 40 mg tablet 40 mg PO BID 12/14/20 05/08/24 metformin 1,000 mg tablet 1,000 mg PO BID 12/14/20 05/08/24 prazosin 1 mg capsule 1 mg PO BID 12/14/20 05/08/24 sitagliptin phosphate 100 mg 100 mg PO QDAY 12/14/20 05/08/24 tablet (Januvia) clotrimazole-betamethasone 1 1 applic topical BID excema 01/29/21 05/08/24 %-0.05 % topical cream albuterol sulfate 90 mcg/actuation 2 puff inhalation Q6H PRN ASTHMA 01/29/24 05/08/24 aerosol inhaler glimepiride 4 mg tablet 4 mg PO BID 01/29/24 05/08/24 insulin aspart U-100 100 unit/mL 12 unit subcut TID 01/29/24 05/08/24 (3 mL) subcutaneous pen (Novolog FlexPen U-100 Insulin aspart) insulin glargine U-300 conc 300 100 unit subcut QDAY 01/29/24 05/08/24 unit/mL (1.5 mL) subcutaneous pen (Toujeo SoloStar U-300 Insulin) simvastatin 20 mg tablet 20 mg PO QPM 01/29/24 05/08/24 clotrimazole-betamethasone 1 1 applic topical 2XD excema 05/08/24 05/08/24 %-0.05 % topical cream hydrocortisone 2.5 % topical 1 applic topical 2XD excema 05/08/24 05/08/24 ointment Previous Rx's ?Medication ?Instructions ?Recorded furosemide 80 mg tablet (Lasix) 80 mg PO QAM #1 tab 05/18/24 potassium chloride 20 mEq/15 mL 20 meq (15 mL) PO QDAY #30 mL 05/18/24 oral liquid amoxicillin 875 mg-potassium 1 tab PO Q12H #10 tabs 06/11/24 clavulanate 125 mg tablet doxycycline monohydrate 100 mg 100 mg PO BID #10 caps 06/11/24 capsule oseltamivir 75 mg capsule (Tamiflu) 75 mg PO Q12H 5 days #10 caps 06/11/24 Allergies Allergy/AdvReac Type Severity Reaction Status Date / Time No Known Allergies Allergy Verified 06/11/24 08:01 Review of Systems Review of Systems Systems Reviewed: All systems reviewed, normal except as documented Narrative Review of Systems: GEN: No fever, no chills, no weight loss EYES: No discharge, no visual changes, no pain HEENT: No ear pain, no congestion, no sore throat PULM: + shortness of breath, no cough, no congestion CV: No chest pain, no dyspnea on exertion, no palpitations GI: + mild nausea, no vomiting, no diarrhea, no actual pain, + fullness to his abdomen/ distention (see HPI), no constipation : No frequency, no urgency and no dysuria MUSC/SKEL: No joint pain, no back pain SKIN: No rash PSYCH: No hallucinations, no depression HEME/LYMPH: No easy bleeding or bruising tendencies NEURO: No weakness, no headache Past Medical History Past Medical History NEUROLOGIC: Negative Neurological Disorders CARDIAC: Positive Cardiac Disorders, Myocardial Infarction (10/2023), Hypercholesterolemia, Congestive Heart Failure (06/30/23 SCHEDULED FOR CABG) and Hypertension RESPIRATORY: Positive Asthma, Pneumonia (20 YEARS AGO) and Tuberculosis (1979 RECEIVED [place]); Negative Chronic Obstructive Pulmonary Disease (COPD) GASTROINTESTINAL: Positive Gastrointestinal Disorders (HERNIA (CURRENT), ACID REFLUX) GENITOURINARY: Positive Kidney Stones; Negative Renal Disease MUSCULOSKELETAL: Positive Fractures (LEFT ANKLE FX- NO HARDWARE PLACED, LEFT RIB FX); Negative Musculoskeletal Disorders ENT: Negative History of ENT Problems ENDOCRINE: Positive Endocrine Disorders and Diabetes Mellitus Type 2; Negative Diabetes Mellitus Type 1 HEMATOLOGIC: Negative Blood Disorders or Sickle Cell Disease OTHER HISTORY: Negative Hospitalization, Autoimmune Disease, Falls or Anesthesia Reactions Family History FAMILY HISTORY: Positive Family Cardiac Disorders; Negative Family Psychiatric Problems, Family Respiratory Disorders, Family Gastrointestinal Problems, Family Cancer, Family Surgery or Family Anesthesia Reaction Surgical History SURGICAL: Positive Vascular Surgery and Cardiac Catheterization Social History SMOKING STATUS: Never smoker ED Exam General Limitations: Present no limitations General appearance: Present alert and in no apparent distress Head Head exam: Present atraumatic Eye Eye exam: Present normal appearance, PERRL and EOMI ENT ENT exam: Present normal exam, normal oropharynx and mucous membranes moist Neck Neck exam: Present normal inspection, full ROM and trachea midline Chest Chest inspection: Present normal inspection and symmetric chest wall rise Respiratory Respiratory exam: Present normal lung sounds bilaterally (clear lungs); Absent respiratory distress Cardiovascular Cardiovascular exam: Present regular rate, normal rhythm and normal heart sounds Abdominal Exam Abdominal exam: Present soft, normal bowel sounds and other (got soft fluid filled abdomen without tenderness); Absent tenderness Extremities Exam Extremities exam: Present full ROM and pedal edema (2+ bilateral lower extremity pitting edema) Back Exam Back exam: Present normal inspection and full ROM Neurological Exam Neurological exam: Present alert, oriented X3 and CN II-XII intact Psychiatric Psychiatric exam: Present normal affect and normal mood Skin Skin exam: Present warm, dry, intact and normal color Course Quality Measures none Orders Category Date Time Status Bedside COVID-19 Antigen Test NOW Care 06/11/24 08:[address] Screening NOW Care 06/11/24 09:44 Completed Truck Hopper STAT Care 06/11/24 08:18 Completed Continuous Pulse Oximetry ONCE Care 06/11/24 08:18 Completed EKG (ED ONLY) *Do not use* NOW Care 06/11/24 08:18 Completed Insert IV STAT Care 06/11/24 08:18 Completed Consult to General Surgery Stat Cons 06/11/24 15:[address] abdomen pelvis w con Stat Exams 06/11/24 09:[address] angio chest Stat Exams 06/11/24 09:44 Completed EKG (ED Only) Stat Exams 06/11/24 08:18 Draft US gall bladder Stat Exams 06/11/24 13:35 Completed XR chest 1V portable Stat Exams 06/11/24 08:18 Completed B-Type Natriuretic Peptide Stat Lab 06/11/24 08:29 Completed CBC Stat Lab 06/11/24 08:29 Completed Comprehensive Metabolic Panel Stat Lab 06/11/24 08:29 Completed Lipase Stat Lab 06/11/24 08:29 Completed Magnesium Stat Lab 06/11/24 08:29 Completed Partial Thromboplastin Time Stat Lab 06/11/24 08:29 Completed Prothrombin Time with INR Stat Lab 06/11/24 08:29 Completed Troponin I Stat Lab 06/11/24 08:29 Completed Troponin I Stat Lab 06/11/24 13:45 Completed Oseltamivir [Tamiflu] Med 06/11/24 14:56 Discontinued 75 mg PO X1 ONE cefTRIAXone/D5w 1gm IV premix [Rocephin/D5w 1gm IV Med 06/11/24 14:56 Discontinued premix] 50 ml IV X1 Oxygen Delivery NOW RT 06/11/24 08:18 Completed Reevaluation(s) Reevaluation #1: Patient remains clinically stable throughout the emergency department visit. Re- assessment at the time of disposition demonstrates that the patient is in no acute distress. We reviewed all the results, analysis, and treatment plans. Patient is amenable to discharge. Strict return precautions were outlined. Patient was discharged in stable condition. Time: 16:35 Vital Signs Vital signs: Vital Signs Temperature 98.3 F 06/11/24 08:15 Pulse Rate 48 L 06/11/24 08:15 Respiratory Rate 20 06/11/24 08:15 Blood Pressure 126/70 06/11/24 08:15 Pulse Oximetry (%) 97 06/11/24 08:15 Oxygen Delivery Method Room Air 06/11/24 08:15 Shortness of Breath / Dyspnea MDM Narrative MDM Narrative:: Mr. Alexander history history of CHF, multivessel coronary artery disease with CABG pending June 30 who presents to the emergency department with his a fullness in his upper abdomen. It is equivocal whether or not he has shortness of breath, however he does not appear to have orthopnea or PND. He slept on his normal pillows an incline last night. On exam he does have upper abdominal pain on exam including right upper quadrant abdominal pain. This could be consistent with lower lobe pneumonias and or biliary hepatic disease. As result workup was initiated to rule these out including laboratory testing and CT scans. Results were significant for a normal white blood cell count, normal biliary labs, and a CT scan which shows bilateral lower lobe infiltrates. He was treated with antibiotics here in the emergency department. For his right upper quadrant tenderness, ultrasound was done which possibly suggest a calculus cholecystitis. General surgery was consulted and examined the patient bedside, we reviewed the CT scan ultrasounds together, and do not feel the picture is consistent with an acalculous cholecystitis gallbladder wall thickening could be fitting with his infectious process therefore at this point to treat his pneumonia, we will err towards antibiotic and antiviral treatment to ensure that he is infection free and cleared for his surgery. I, Roxanne Chanel, am scribing for and in the presence of Dr. Wallis. Patient data External records reviewed:: [facility] previous records (Reviewed last ED visit dated 05/18/24, discharged with the following: Fluid overload.) Clinical information provided by:: patient Social determinants that could affect healthcare access:: none Patient has the following chronic illnesses:: Ischemic cardiomyopathy followed by Dr. White with multivessel disease, requiring CABG. His CABG, is scheduled for [address] Rivera at [facility]. How is presenting disease/condition affected by chronic disease/condition?: exacerbated by Evaluation data The following diagnostics were reviewed and interpreted by me:: lab results, radiology exam(s) and EKG tracing(s) Lab and/or radiology exams considered but not ordered:: none Interpretation Summary: EKG: Dated 06/11/2024 at 0826 hours. Interpreted by me: sinus rhythm, rate , normal intervals, normal axis, no acute ST-T wave changes, with frequent PACs. Chest x-ray: my interpretation shows no acute cardiopulmonary findings, no cardiomegaly, no bony abnormalities. Full report below. RADIOLOGY Procedure(s): XR chest 1V portable Accession Number(s): [id number] cc: Humza Serrato MD; Shon Paige MD; Tierney Vyas~ Examination: AP chest single view Technique one AP portable semiupright chest single view Exam date and time: June 11, 2024 0845 hours INDICATIONS: Chest pain shortness of breath today. FINDINGS: Mild opacity both bases Normal heart size No pulmonary edema IMPRESSION: Suspicious for early bibasilar pneumonia Dictated By: Humza Serrato MD Procedure(s): CT angio chest Accession Number(s): [id number] cc: Jm Wallis MD; Humza Serrato MD; Shon Paige MD~ Examination: CTA chest with intravenous contrast 2-D reconstructions 3-D reconstructions, vascular Date and time of exam: June 11, 2024 1249 hours INDICATIONS: Shortness of breath chest pain today CTDI: vol (mGy) 17 DLP: (mGycm) 627 Technique: Multiple axial sections of the thorax have been obtained. 3 mm slice thickness, from below the hemidiaphragms to above the apices of the lungs. Mediastinal and lung density settings have been obtained. 2-D sagittal and coronal reconstructions. 3-D angiographic renderings, 3-D volume renderings, 3D post processing, vascular maximum intensity projections obtained. Contrast administered is 100 cc Isovue-370. Low dose protocols were performed. One or more of the following dose reduction techniques were used; automated exposure control, adjustment of the mA and/or KV according to patient size, use of iterative reconstruction technique. Findings: No thoracic aortic aneurysm dilatation Pulmonary artery segments are not enlarged No pulmonary artery emboli Mild enlargement cardiac contour Mild vascular congestion Bibasilar opacity consistent with pneumonia, mild right minimal left pleural fluid No visualized liver or splenic lesion No pancreatic mass IMPRESSION: Negative for pulmonary artery emboli Mild vascular congestion Bibasilar pneumonia with mild right minimal left pleural fluid Dictated By: Humza Serrato MD Procedure(s): CT abdomen pelvis w con Accession Number(s): [id number] cc: Jm Wallis MD; Humza Serrato MD; Shon Paige MD~ Examination: CT abdomen with intravenous contrast CT pelvis with intravenous contrast 2-D coronal reconstructions 2-D sagittal reconstructions Date and time of exam:June 11, 2024 1249 hours INDICATIONS: Onset diffuse abdominal pain and distention today COMPARISON: May 08, 2024. CTDI: vol (mGy) 13.2 DLP: (mGycm) 903 Technique: Multiple axial sections of the abdomen and pelvis have been obtained. 64 slice high-resolution scanner used. 3 mm axial sections have been obtained, post intravenous injection 100 cc Isovue-370 2-D sagittal, coronal reconstructions obtained. Low dose protocols were performed. One or more of the following dose reduction techniques were used; automated exposure control, adjustment of the mA and/or KV according to patient size, use of iterative reconstruction technique. Findings: Diffuse fatty infiltration throughout the liver, no biliary tract dilatation Fluid adjacent to the gallbladder, axial image 89 No pancreatic mass 10 mm left adrenal adenoma Aorta normal size Bilateral renal cysts, no hydronephrosis No bowel obstruction No pericecal inflammatory change, normal appendix No diverticulitis No significant prostatomegaly No bladder mass Moderate lumbar spondylosis IMPRESSION: Recommend hepatobiliary sonography to exclude acute cholecystitis No hydronephrosis renal or ureteral calculi No CT findings of bowel obstruction or diverticulitis Normal appendix Dictated By: Humza Serrato MD Medications / Prescriptions Medications or Prescriptions considered but not ordered:: none Medication administrations:: Medication Administration History Discontinued Medications Ceftriaxone Sodium/Dextrose (Rocephin/D5w 1gm Iv Premix) 50 mls @ 100 mls/hr IV X1 ONE Stop: 06/11/24 15:25 Last Infusion: 06/11/24 16:07 Dose: Infused Documented By: Admin: 06/11/24 15:19 Dose: 100 mls/hr Documented By: DD Oseltamivir Phosphate (Oseltamivir 75 Mg Capsule) 75 mg PO X1 ONE Stop: 06/11/24 14:57 Last Admin: 06/11/24 15:19 Dose: 75 mg Documented By: DD see above if any Consultations Consultation(s) initiated? (list below): Yes Consultation #1 (Physician, Specialty, Details): Discussed test HPI, PMHx, lab, radiology results and/or management with Dr. Guerrero. Consulted for possible calculus, cholecystitis; he will come evaluate the patient at bedside. Time: 15:15 Consultation #2 (Physician, Specialty, Details): Dr Guerrero examined the patient at bedside and feels that his symptoms are not consistent with acute colonitis. Recommends treatment for his pneumonia and he can follow-up closely with Dr. Paige. Time: 16:30 Diagnosis Shortness of Breath Differential Diagnosis: congestive heart failure, pulmonary embolism and other (ascites, pneumonia) Most likely diagnosis given after review of the tests above:: Community acquired pneumonia CHF Admission Indicated Admission indicated?: not indicated Admission Request Was there a request for admission?: No Disposition Plan Disposition Plan: Discharge Discharge Attestation Discharge Attestation: The patient and all family members were given an opportunity to ask questions and understood the discharge instructions. Discharge instructions specifically effects, indications for sooner follow up or return to the emergency department, and the expected course of current diagnosis. Patient condition: Stable Discharge Plan Plan Patient Disposition: HOME (Self Care) Prescriptions/Referrals Prescriptions/Med Rec: New doxycycline monohydrate 100 mg capsule 100 mg PO BID Qty: 10 0RF oseltamivir [Tamiflu] 75 mg capsule 75 mg PO Q12H 5 Days Qty: 10 0RF amoxicillin-pot clavulanate 875-125 mg tablet 1 tab PO Q12H Qty: 10 0RF No Action amlodipine 10 mg tablet 10 mg PO QDAY Januvia 100 mg tablet 100 mg PO QDAY benazepril 40 mg tablet 40 mg PO BID metformin 1,000 mg tablet 1,000 mg PO BID Hold Instructions: Resume on 01/31/24. resume on Tuesday 01/30 prazosin 1 mg capsule 1 mg PO BID clotrimazole-betamethasone 1-0.05 % cream 1 applic topical BID simvastatin 20 mg Tablet 20 mg PO QPM insulin aspart U-100 [Novolog FlexPen U-100 Insulin] 100 unit/mL (3 mL) Insulin Pen 12 unit SUBCUT TID insulin glargine U-300 conc [Toujeo SoloStar U-300 Insulin] 300 unit/mL (1.5 mL) Insulin Pen 100 unit SUBCUT QDAY glimepiride 4 mg Tablet 4 mg PO BID albuterol sulfate 90 mcg/actuation Hfa Aerosol Inhaler 2 puff INHALATION Q6H PRN (Reason: ASTHMA) clotrimazole-betamethasone 1-0.05 % cream 1 applic topical 2XD hydrocortisone 2.5 % ointment 1 applic TOPICAL 2XD furosemide [Lasix] 80 mg tablet 80 mg PO QAM Qty: 1 0RF potassium chloride 20 mEq/15 mL liquid 20 meq PO QDAY Qty: 30 0RF Referrals: Shon Paige MD [Primary Care Provider] - In 1 week Problem List Clinical Impression: Community acquired pneumonia, Congestive heart failure Patient/Caregiver Discharge Instructions Education Materials: ED Pneumonia (Adult) Additional Instructions: Follow-up with your primary care doctor in 5 to 7 days for recheck. You can return to the emergency department sooner symptoms worsen or if you notice any new, concerning issues. Print Language: Gibralt[place] Stand Alone Forms: Hannah Award Info., Patient Portal Info Letter
--- NOTE | 2024-06-11 13:35 | XR_ITS ---
Examination: Abdomen sonogram, Limited Date and time of exam: June 11, 2024 1431 hours INDICATIONS: Right upper abdominal pain and abdominal distention beginning today Technique: Real-time weiss scale transabdominal sonographic images of the upper abdomen obtained. Findings: Negative for gallstones Thickened edematous gallbladder wall anteriorly measuring up to 0.44 cm Common bile duct 0.5 cm no stones Pancreas obscured by bowel gas Liver 16 cm fatty infiltration lobular contour Normal hepatopedal portal venous oh Patent IVC At least mild right pleural fluid IMPRESSION: Acute acalculous cholecystitis, consider MRCP follow-up
[2024-06-11 14:43] LABS: Troponin I 0.136 ng/mL (0.0-0.045)
[2024-06-11] MEDS: cefTRIAXone/D5w 1gm IV premix 50 ML IV (15:19)
[2024-06-11] MEDS: OSELTAMIVIR 75 MG CAPSULE PO (15:19)
--- NOTE | 2024-06-11 17:41 | ESCONSULT_ITS ---
HPI Consult details Consult date: 06/11/24 Reason for consultation narrative: The patient was seen on consultation at the request of the ER physician for possible acalculous cholecystitis which was read by the radiologist History of present illness: History of present illness revealed that the patient came to the hospital because of shortness of breath. He has had a known history of congestive heart failure and he developed some pain on the right side of the abdomen couple of days ago. He did not see his primary care physician Dr. Paige. He is scheduled for coronary artery bypass on June 30 at [place]. The workup in the emergency room showed a calculus cholecystitis and a surgical consultation was obtained. Patient's other medical problem consist of hypertension arteriosclerotic heart disease and diabetes Past Medical History Past Medical History NEUROLOGIC: Negative Neurological Disorders CARDIAC: Positive Cardiac Disorders, Myocardial Infarction (10/2023), Hypercholesterolemia, Congestive Heart Failure (06/30/23 SCHEDULED FOR CABG) and Hypertension RESPIRATORY: Positive Asthma, Pneumonia (20 YEARS AGO) and Tuberculosis (1979 RECEIVED ); Negative Chronic Obstructive Pulmonary Disease (COPD) GASTROINTESTINAL: Positive Gastrointestinal Disorders (HERNIA (CURRENT), ACID REFLUX) GENITOURINARY: Positive Kidney Stones; Negative Renal Disease MUSCULOSKELETAL: Positive Fractures (LEFT ANKLE FX- NO HARDWARE PLACED, LEFT RIB FX); Negative Musculoskeletal Disorders ENT: Negative History of ENT Problems ENDOCRINE: Positive Endocrine Disorders and Diabetes Mellitus Type 2; Negative Diabetes Mellitus Type 1 HEMATOLOGIC: Negative Blood Disorders or Sickle Cell Disease OTHER HISTORY: Negative Hospitalization, Autoimmune Disease, Falls or Anesthesia Reactions Family History FAMILY HISTORY: Positive Family Cardiac Disorders; Negative Family Psychiatric Problems, Family Respiratory Disorders, Family Gastrointestinal Problems, Family Cancer, Family Surgery or Family Anesthesia Reaction Surgical History SURGICAL: Positive Vascular Surgery and Cardiac Catheterization Social History SMOKING STATUS: Never smoker Meds Home Medications and Allergies Home Medications ?Medication ?Instructions ?Recorded ?Confirmed ?Type amlodipine 10 mg tablet 10 mg PO QDAY 12/14/20 05/08/24 History benazepril 40 mg tablet 40 mg PO BID 12/14/20 05/08/24 History metformin 1,000 mg tablet 1,000 mg PO BID 12/14/20 05/08/24 History prazosin 1 mg capsule 1 mg PO BID 12/14/20 05/08/24 History sitagliptin phosphate 100 mg 100 mg PO QDAY 12/14/20 05/08/24 History tablet (Januvia) clotrimazole-betamethasone 1 1 applic topical BID excema 01/29/21 05/08/24 History %-0.05 % topical cream albuterol sulfate 90 mcg/actuation 2 puff inhalation Q6H PRN ASTHMA 01/29/24 05/08/24 History aerosol inhaler glimepiride 4 mg tablet 4 mg PO BID 01/29/24 05/08/24 History insulin aspart U-100 100 unit/mL 12 unit subcut TID 01/29/24 05/08/24 History (3 mL) subcutaneous pen (Novolog FlexPen U-100 Insulin aspart) insulin glargine U-300 conc 300 100 unit subcut QDAY 01/29/24 05/08/24 History unit/mL (1.5 mL) subcutaneous pen (Toujeo SoloStar U-300 Insulin) simvastatin 20 mg tablet 20 mg PO QPM 01/29/24 05/08/24 History clotrimazole-betamethasone 1 1 applic topical 2XD excema 05/08/24 05/08/24 History %-0.05 % topical cream hydrocortisone 2.5 % topical 1 applic topical 2XD excema 05/08/24 05/08/24 History ointment Allergies Allergy/AdvReac Type Severity Reaction Status Date / Time No Known Allergies Allergy Verified 06/11/24 08:01 Exam Vital Signs Temp Pulse Resp BP Pulse Ox O2 Del Method 98.2 F 97 20 147/79 H 95 Room Air 06/11/24 16:04 06/11/24 16:04 06/11/24 16:04 06/11/24 16:04 06/11/24 16:04 06/11/24 16:04 Narrative Exam My physical examination revealed an obese female who speaks good Kazakh. He is 5 foot 11 inches tall weighing 250 pounds with BMI of 34.9. His vital signs are normal Constitutional Constitutional: mild distress Routine Abdominal Exam Comments: Examination abdomen showed some tenderness over the right upper quadrant on deep palpation. Results Results: Laboratory Laboratory Narrative: Patient's laboratory workup is within normal limit Results: Imaging Imaging narrative: Ultrasound of the gallbladder showed thickening of the gallbladder wall but no stones. CT scan showed no stones with bilateral pneumonia Assessment & Plan Additional Assessment Additional comments: Impression: Possible acalculous cholecystitis Severe CHF Diabetes Hypertension Obesity Plan Plan: I do not think the patient needs any surgery at this time because of the abnormality in the gallbladder wall. Once again acalculous cholecystitis do not occur on a patient who is ambulatory. This usually results in a postoperative patient with sepsis. Patient does not have has not taken any pain medicine. I suggest we treat him symptomatically and then discharge him. If he needs drainage this could be done percutaneously but I am not sure he needs it at this time. I will wait for him to get his cardiac revascularization and then find out if he really has any biliary disease. Thank you very much
== END 2024-06-11 17:31 | disposition home or self-care (01) ==
PROVIDERS: Nurse Practitioner Primary Care; Emergency Provider Emergency Medicine; PCP Family Medicine
DX: J18.9 Pneumonia, unspecified organism (principal); I50.9 Heart failure, unspecified
CPT/HCPCS: 36415; 71045; 71275; 74177; 76705; 80053; 83690; 83735; 83880; 84484; 85025; 85610; 85730; 87811; 93005; 96365; 99285; A4649; J0696; Q9967; A9270

== ENCOUNTER 2024-06-17 04:00 | Emergency (ER) | payer MEDICARE, SELFPAY ==
[2024-06-17 04:00] VITALS: BMI 34.8
--- NOTE | 2024-06-17 04:03 | EKG_ITS ---
[facility] Test Date: 2024-06-17 Pat Name: JENELLE ALVARES Department: Room: - Gender: Male [employer] Odd: : 1955 Requested By: Ham Connolly Order Number: [id number] Reading MD: Ham Connolly Measurements Intervals Doss Rate: 98 P: 8 CT: 177 QRS: -19 QRSD: 96 T: 37 QT: 347 QTc: 445 Interpretive Statements SINUS RHYTHM WITH FREQUENT VENTRICULAR PREMATURE COMPLEXES ANTEROSEPTAL MYOCARDIAL INFARCTION , OF INDETERMINATE AGE [40+ ms Q WAVE IN V1-V4] Compared to ECG 06/11/2024 08:26:20 Sinus tachycardia no longer present Myocardial infarct finding still present /[id number]/[id number]
[2024-06-17 04:16] VITALS: BP 151/104; PULSE 91; RESP 18; TEMP 36.6; O2SAT 96
--- NOTE | 2024-06-17 04:53 | XR_ITS ---
Examination: PA chest single view Technique: Upright PA chest single view Exam date and time: June 17, 2024 0533 hrs. Comparison June 11, 2024 Indications: Shortness of breath beginning couple days ago. Findings: Significant bibasilar pneumonia Normal heart size The osseous structures are intact Impression: Significant bibasilar pneumonia
--- NOTE | 2024-06-17 04:53 | PD.EDRME ---
Rapid Medical Screening Exam RME Arrival date/time: 06/17/24 04:00 68M with history of HTN, DM, CHF, and CAD (CABG scheduled next month) presents to ED with SOB. Patient was here and after extensive studies including CTA was diagnosed with PNA and given ABX, which patient has been taking. Chief Complaint: Shortness of Breath/Dyspnea Vital signs: Vital Signs Temperature 97.8 F 06/17/24 04:16 Pulse Rate 91 06/17/24 04:16 Respiratory Rate 18 06/17/24 04:16 Blood Pressure 151/104 H 06/17/24 04:16 Pulse Oximetry (%) 96 06/17/24 04:16 Oxygen Delivery Method Room Air 06/17/24 04:16
[2024-06-17 06:14] LABS: Basophils # (Auto) 0.1 Thou/mm3 (0.0-0.2); Basophils % (Auto) 1 % (0-2.5); Eosinophils # (Auto) 0.2 Thou/mm3 (0.0-0.5); Eosinophils % (Auto) 2 % (0-10); Hematocrit 39.6 % (41.0-53.0); Hemoglobin 13.6 g/dL (13.5-16.0); Immature Granulocytes % (Auto) 0 % (0-0); Immature Granulocytes Auto 0.05 Thou/mm3 (0.00-0.00); Lymphocytes # (Auto) 1.6 Thou/mm3 (1.0-4.8); Lymphocytes % (Auto) 14 % (10-50); Mean Corpuscular HGB Conc 34.3 g/dl (31.0-37.0); Mean Corpuscular Hemoglobin 30.2 pg (25.0-35.0); Mean Corpuscular Volume 88 fL (80-100); Monocytes # (Auto) 0.8 Thou/mm3 (0.0-0.8); Monocytes % (Auto) 7 % (0-12); Neutrophils # (Auto) 8.6 Thou/mm3 (1.8-7.7); Neutrophils % (Auto) 76 % (37-80); Nucleated Red Blood Cell % 0 /100 WBC (0); Platelet Count 205 Thou/mm3 (140-440); White Blood Count 11.4 Thou/mm3 (3.8-10.6)
[2024-06-17 06:31] LABS: Alanine Aminotransferase 10 U/L (10-49); Albumin, Serum 4.5 gm/dL (3.4-4.8); Albumin/Globulin Ratio 1.8 (1.2-2.2); Alkaline Phosphatase 75 U/L (46-116); Anion Gap 7 (7-16); Aspartate Amino Transferase 24 U/L (0-34); BUN/Creatinine Ratio 11 Ratio (12-20); Bilirubin,Total 0.9 mg/dL (0.3-1.2); Blood Urea Nitrogen 13 mg/dL (9-23); Calcium 10.8 mg/dL (8.3-10.6); Calcium (Corrected) 10.8 mg/dL (8.5-10.1); Carbon Dioxide 26.1 mMol/L (20.0-31.0); Chloride 108 mMol/L (98-107); Creatinine (Component) 1.2 mg/dL (0.6-1.3); Estimated Creatinine Clearance 76.5 mL/min (>60); Globulin 2.5 gm/dL (2.3-3.5); Glucose 163 mg/dL (74-106); Osmolality,Calculated 285 (275-295); Potassium 5.2 mMol/L (3.4-5.1); Sodium 141 mMol/L (136-145); Troponin I 0.039 ng/mL (0.0-0.045); eGFR > 60 See Note
[2024-06-17 07:00] LABS: B-Type Natriuretic Peptide 759 pg/mL (0-100)
[2024-06-17 08:10] VITALS: BP 152/88; PULSE 91; RESP 18; TEMP 36.4; O2SAT 95
[2024-06-17 10:35] VITALS: BP 156/102; PULSE 100; RESP 19; TEMP 36.4; O2SAT 96
--- NOTE | 2024-06-17 11:30 | PC.NURSE ---
PT CAME TO TRIAGE DESK TO SAY HE WAS LEAVING BECAUSE IT'S TAKING TOO LONG. SIGNED AMA FORM AND WALKED OUT
== END 2024-06-17 11:31 | disposition left against medical advice (07) ==
LOC: SERX 05:02
PROVIDERS: Physician Assistant; Emergency Provider Emergency Medicine; PCP Family Medicine
DX: R06.02 Shortness of breath (principal); I11.0 Hypertensive heart disease with heart failure; I50.9 Heart failure, unspecified; E11.9 Type 2 diabetes mellitus without complications; I25.10 Atherosclerotic heart disease of native coronary artery without angina pectoris; Z95.1 Presence of aortocoronary bypass graft; Z53.29 Procedure and treatment not carried out because of patient's decision for other reasons
CPT/HCPCS: 36415; 71045; 80053; 83880; 84484; 85025; 93005; 99281

== ENCOUNTER → 2024-09-03 | Outpatient (CLI) | payer MEDICARE, SELFPAY ==
--- NOTE | 2024-09-03 09:09 | XR_ITS ---
Examination: PA lateral chest 2 views TECHNIQUE: Upright PA lateral chest 2 views Exam date and time: September 03, 2024 0921 hours Comparison June 17, 2024 INDICATIONS: Status post cardiac surgery 2 weeks ago, shortness of breath 2 weeks FINDINGS: Mild prominence left ventricle CABG Minimal blunting of the right costophrenic angle No chasity pulmonary edema, no lobar pneumonia IMPRESSION: Suspicious for small right pleural effusion
[2024-09-03 10:20] LABS: Basophils # (Auto) 0.1 Thou/mm3 (0.0-0.2); Basophils % (Auto) 1 % (0-2.5); Eosinophils # (Auto) 0.2 Thou/mm3 (0.0-0.5); Eosinophils % (Auto) 2 % (0-10); Hematocrit 38.7 % (41.0-53.0); Hemoglobin 13.2 g/dL (13.5-16.0); Immature Granulocytes % (Auto) 0 % (0-0); Immature Granulocytes Auto 0.02 Thou/mm3 (0.00-0.00); Lymphocytes # (Auto) 1.5 Thou/mm3 (1.0-4.8); Lymphocytes % (Auto) 16 % (10-50); Mean Corpuscular HGB Conc 34.1 g/dl (31.0-37.0); Mean Corpuscular Hemoglobin 30.3 pg (25.0-35.0); Mean Corpuscular Volume 89 fL (80-100); Monocytes # (Auto) 0.6 Thou/mm3 (0.0-0.8); Monocytes % (Auto) 7 % (0-12); Neutrophils # (Auto) 6.8 Thou/mm3 (1.8-7.7); Neutrophils % (Auto) 74 % (37-80); Nucleated Red Blood Cell % 0 /100 WBC (0); Platelet Count 226 Thou/mm3 (140-440); RDW Standard Deviation 49.6 fL (35.1-43.9); Red Blood Count 4.35 Miln/mm3 (4.50-5.90); White Blood Count 9.2 Thou/mm3 (3.8-10.6)
[2024-09-03 10:40] LABS: B-Type Natriuretic Peptide 1352 pg/mL (0-100)
[2024-09-03 11:35] LABS: Albumin, Serum 4.1 gm/dL (3.4-4.8); Anion Gap 9 (7-16); BUN/Creatinine Ratio 14 Ratio (12-20); Blood Urea Nitrogen 15 mg/dL (9-23); Calcium 9.3 mg/dL (8.3-10.6); Calcium (Corrected) 9.3 mg/dL (8.5-10.1); Chloride 105 mMol/L (98-107); Creatinine (Component) 1.1 mg/dL (0.6-1.3); Glucose 178 mg/dL (74-106); Osmolality,Calculated 284 (275-295); Phosphorous 4.1 mg/dL (2.4-5.1); Potassium 3.8 mMol/L (3.4-5.1); Sodium 140 mMol/L (136-145); Troponin I 0.041 ng/mL (0.0-0.045); eGFR > 60 See Note
== END | disposition home or self-care (01) ==
LOC: CDIM 09:04 → COPL 09:53
PROVIDERS: PCP Family Medicine; Referring Provider Family Medicine; Visit Provider Family Medicine
DX: Z13.1 Encounter for screening for diabetes mellitus (principal); I13.0 Hypertensive heart and chronic kidney disease with heart failure and stage 1 through stage 4 chronic kidney disease, or unspecified chronic kidney disease; D50.0 Iron deficiency anemia secondary to blood loss (chronic)
CPT/HCPCS: 36415; 71046; 80069; 83880; 84484; 85025

== ENCOUNTER → 2024-09-17 | Outpatient (CLI) | payer MEDICARE, SELFPAY ==
[2024-09-17 13:23] LABS: Glucose Estimated Average 143 mg/dL (80-131); Hemoglobin A1C 6.6 % Hgb (4.8-6.0)
== END | disposition home or self-care (01) ==
LOC: COPL 12:40
PROVIDERS: PCP Family Medicine; Referring Provider Family Medicine; Visit Provider Family Medicine
DX: E11.65 Type 2 diabetes mellitus with hyperglycemia (principal)
CPT/HCPCS: 36415; 83036

== ENCOUNTER → 2024-10-05 | Outpatient (CLI) | payer MEDICARE, SELFPAY ==
--- NOTE | 2024-10-05 13:18 | XR_ITS ---
Examination: CTA chest with intravenous contrast 2-D reconstructions 3-D reconstructions, vascular Date and time of exam: October 05, 2024 1407 hours INDICATIONS: Shortness of breath chest pain beginning June 2024, post heart surgery CTDI: vol (mGy) 26 DLP: (mGycm) 474 Technique: Multiple axial sections of the thorax have been obtained. 3 mm slice thickness, from below the hemidiaphragms to above the apices of the lungs. Mediastinal and lung density settings have been obtained. 2-D sagittal and coronal reconstructions. 3-D angiographic renderings, 3-D volume renderings, 3D post processing, vascular maximum intensity projections obtained. Contrast administered is 100 cc Isovue-370. Low dose protocols were performed. One or more of the following dose reduction techniques were used; automated exposure control, adjustment of the mA and/or KV according to patient size, use of iterative reconstruction technique. Findings: No thoracic aortic aneurysmal dilatation Pulmonary artery segments are not enlarged No pulmonary artery filling defects Mild to moderate enlargement cardiac contour Moderate vascular congestion Mild septal basilar pulmonary edema with small pleural effusions Liver is irregular in contour Gallbladder wall appears thickened Spleen is not enlarged IMPRESSION: Mild CHF Negative for pulmonary artery emboli Recommend hepatobiliary sonography to exclude cholecystitis
[2024-10-05 13:59] LABS: Anion Gap 3 (7-16); BUN/Creatinine Ratio 21 Ratio (12-20); Blood Urea Nitrogen 25 mg/dL (9-23); Calcium 8.4 mg/dL (8.3-10.6); Carbon Dioxide 23.6 mMol/L (20.0-31.0); Chloride 112 mMol/L (98-107); Creatinine (Component) 1.2 mg/dL (0.6-1.3); Glucose 286 mg/dL (74-106); Osmolality,Calculated 291 (275-295); Potassium 4.1 mMol/L (3.4-5.1); Sodium 139 mMol/L (136-145); eGFR > 60 See Note
== END | disposition home or self-care (01) ==
PROVIDERS: PCP Family Medicine; Referring Provider Internal Medicine; Visit Provider Radiology Diagnostic Radiology
DX: I50.9 Heart failure, unspecified (principal); I25.10 Atherosclerotic heart disease of native coronary artery without angina pectoris; I48.91 Unspecified atrial fibrillation
CPT/HCPCS: 36415; 71275; 80048; A4649; Q9967

== ENCOUNTER → 2024-11-30 | Outpatient (CLI) | payer MEDICARE, SELFPAY ==
--- NOTE | 2024-11-30 13:42 | XR_ITS ---
Examination: Knee, right , 3 views Technique: Knee AP, lateral, oblique 3 views Date and time of exam: November 30, 2024 1343 hours INDICATIONS: Patient fell this month with injury to the knee, knee pain. FINDINGS: Severe osteopenia Moderate tricompartment osteoarthritis No fracture or dislocation IMPRESSION: No fracture or dislocation
== END | disposition home or self-care (01) ==
LOC: CDIM 13:15
PROVIDERS: PCP Family Medicine; Referring Provider Family Medicine; Visit Provider Family Medicine
DX: M17.11 Unilateral primary osteoarthritis, right knee (principal); M85.861 Other specified disorders of bone density and structure, right lower leg
CPT/HCPCS: 73562

== ENCOUNTER → 2024-12-20 | Outpatient (CLI) | payer MEDICARE, SELFPAY ==
[2024-12-20 16:09] LABS: B-Type Natriuretic Peptide 620 pg/mL (0-100)
[2024-12-20 16:23] LABS: Albumin, Serum 4.2 gm/dL (3.4-4.8); Anion Gap 9 (7-16); BUN/Creatinine Ratio 15 Ratio (12-20); Blood Urea Nitrogen 21 mg/dL (9-23); Calcium 9.4 mg/dL (8.3-10.6); Calcium (Corrected) 9.4 mg/dL (8.5-10.1); Carbon Dioxide 30.4 mMol/L (20.0-31.0); Chloride 104 mMol/L (98-107); Creatinine (Component) 1.4 mg/dL (0.6-1.3); Glucose 207 mg/dL (74-106); Osmolality,Calculated 293 (275-295); Phosphorous 4.4 mg/dL (2.4-5.1); Potassium 4.7 mMol/L (3.4-5.1); Sodium 143 mMol/L (136-145); eGFR 55 See Note
== END | disposition home or self-care (01) ==
PROVIDERS: PCP Specialist; Referring Provider Student in an Organized Health Care Education/Training Program; Visit Provider Specialist
DX: R06.02 Shortness of breath (principal); I10 Essential (primary) hypertension
CPT/HCPCS: 36415; 80069; 83880

== ENCOUNTER → 2025-01-06 | Outpatient (CLI) | payer MEDICARE, SELFPAY ==
[2025-01-06 14:27] LABS: Albumin, Serum 4.0 gm/dL (3.4-4.8); Anion Gap 6 (7-16); BUN/Creatinine Ratio 19 Ratio (12-20); Blood Urea Nitrogen 23 mg/dL (9-23); Calcium 8.8 mg/dL (8.3-10.6); Calcium (Corrected) 8.8 mg/dL (8.5-10.1); Carbon Dioxide 27.6 mMol/L (20.0-31.0); Chloride 107 mMol/L (98-107); Creatinine (Component) 1.2 mg/dL (0.6-1.3); Glucose 218 mg/dL (74-106); Osmolality,Calculated 291 (275-295); Phosphorous 3.3 mg/dL (2.4-5.1); Potassium 4.5 mMol/L (3.4-5.1); Sodium 141 mMol/L (136-145); eGFR > 60 See Note
[2025-01-06 14:32] LABS: B-Type Natriuretic Peptide 768 pg/mL (0-100)
== END | disposition home or self-care (01) ==
LOC: COPL 13:27
PROVIDERS: PCP Family Medicine; Referring Provider Specialist; Visit Provider Specialist
DX: R06.02 Shortness of breath (principal); I10 Essential (primary) hypertension
CPT/HCPCS: 36415; 80069; 83880

== ENCOUNTER → 2025-02-04 | Outpatient (CLI) | payer MEDICARE, SELFPAY ==
[2025-02-04 11:59] LABS: Albumin, Serum 4.1 gm/dL (3.4-4.8); Anion Gap 9 (7-16); BUN/Creatinine Ratio 19 Ratio (12-20); Blood Urea Nitrogen 23 mg/dL (9-23); Calcium 9.6 mg/dL (8.3-10.6); Calcium (Corrected) 9.6 mg/dL (8.5-10.1); Carbon Dioxide 27.6 mMol/L (20.0-31.0); Chloride 105 mMol/L (98-107); Creatinine (Component) 1.2 mg/dL (0.6-1.3); Glucose 145 mg/dL (74-106); Osmolality,Calculated 289 (275-295); Phosphorous 3.6 mg/dL (2.4-5.1); Potassium 4.2 mMol/L (3.4-5.1); Sodium 142 mMol/L (136-145); eGFR > 60 See Note
[2025-02-04 12:01] LABS: B-Type Natriuretic Peptide 578 pg/mL (0-100)
== END | disposition home or self-care (01) ==
LOC: COPL 10:35
PROVIDERS: PCP Family Medicine; Referring Provider Specialist; Visit Provider Specialist
DX: I10 Essential (primary) hypertension (principal); R06.02 Shortness of breath
CPT/HCPCS: 36415; 80069; 83880

== ENCOUNTER → 2025-02-28 | Outpatient (CLI) | payer MEDICARE, SELFPAY ==
[2025-02-28 10:07] LABS: Alanine Aminotransferase 20 U/L (10-49); Albumin, Serum 4.0 gm/dL (3.4-4.8); Albumin/Globulin Ratio 1.8 (1.2-2.2); Alkaline Phosphatase 102 U/L (46-116); Anion Gap 8 (7-16); Aspartate Amino Transferase 19 U/L (0-34); BUN/Creatinine Ratio 15 Ratio (12-20); Bilirubin,Total 0.9 mg/dL (0.3-1.2); Blood Urea Nitrogen 17 mg/dL (9-23); Calcium 9.3 mg/dL (8.3-10.6); Calcium (Corrected) 9.3 mg/dL (8.5-10.1); Carbon Dioxide 26.8 mMol/L (20.0-31.0); Cardiac Risk Estimate 2.3 RATIO (4.0-6.7); Chloride 108 mMol/L (98-107); Cholesterol 102 mg/dL (132-200); Creatinine (Component) 1.1 mg/dL (0.6-1.3); Globulin 2.2 gm/dL (2.3-3.5); Glucose 70 mg/dL (74-106); HDL Cholesterol 45 mg/dL (40-60); LDL Cholesterol,Calculated 48 mg/dL (0-130); Osmolality,Calculated 284 (275-295); Potassium 4.8 mMol/L (3.4-5.1); Sodium 143 mMol/L (136-145); Total Protein 6.2 gm/dL (5.7-8.2); Triglycerides 47 mg/dL (30-150); eGFR > 60 See Note
[2025-02-28 10:15] LABS: Prostate Specific Antigen 0.25 ng/mL (0-4.00)
[2025-02-28 10:51] LABS: Glucose Estimated Average 177 mg/dL (80-131); Hemoglobin A1C 7.8 % Hgb (4.8-6.0)
[2025-02-28 11:17] LABS: Creatinine MALB Rnd Ur 77 mg/dL (30-125); Microalbumin Creat Ratio 197 mg/gCrea (<30); Microalbumin, Random Urine 152 mg/L (0-300)
== END | disposition home or self-care (01) ==
LOC: COPL 08:15
PROVIDERS: PCP Family Medicine; Referring Provider Family Medicine; Visit Provider Student in an Organized Health Care Education/Training Program
DX: N42.9 Disorder of prostate, unspecified (principal); E11.65 Type 2 diabetes mellitus with hyperglycemia; E78.1 Pure hyperglyceridemia
CPT/HCPCS: 36415; 80053; 80061; 82043; 82570; 83036; 84153